=== PATIENT | female | born 1950 | race Caucasian/White ===

== ENCOUNTER 2024-06-03 17:42 | Emergency (ER) | payer OTHER | END 2024-06-03 19:43 | disposition home or self-care (01) | LOC: JP.ED 17:42 | DX: S06.0XAA Concussion with loss of consciousness status unknown, initial encounter (principal); Z79.82 Long term (current) use of aspirin; Z79.899 Other long term (current) drug therapy; W17.89XA Other fall from one level to another, initial encounter | CPT/HCPCS: 70450; 82947; 99283; 99284 ==